=== PATIENT | male | born 1960 | race Hispanic/Latino ===

== ENCOUNTER → 2021-03-17 | Day surgery (SDC) | payer BC, OTHER ==
[~2021-03-17] MED LIST: AMLODIPINE BESY10 MG PO; ASPIRIN81 MG PO; BUPROPION HCL75 MG PO; FEROSUL325 MG PO; LIDOCAINE HCL 2% LOCAL INJ 5 ML SDV VIAL INJ ONE; LISINOPRIL10 MG PO; OMEGA 3 1,0001 EACH PO; OMEPRAZOLE40 MG PO; PROPOFOL IV EMULSION 10 MG/ML 20 ML VIAL ONE; VITAMIN D
[2021-03-17 12:35] VITALS: BP 120/80
== END | disposition home or self-care (01) ==
LOC: OR 07:55
PROVIDERS: ATTEND Internal Medicine Gastroenterology
DX: D50.9 Iron deficiency anemia, unspecified (principal); K20.90 Esophagitis, unspecified without bleeding; K29.70 Gastritis, unspecified, without bleeding; K64.8 Other hemorrhoids; K31.89 Other diseases of stomach and duodenum; D12.7 Benign neoplasm of rectosigmoid junction; K31.7 Polyp of stomach and duodenum; I10 Essential (primary) hypertension; Z87.19 Personal history of other diseases of the digestive system; Z68.32 Body mass index [BMI] 32.0-32.9, adult; E78.5 Hyperlipidemia, unspecified; K44.9 Diaphragmatic hernia without obstruction or gangrene; Z01.810 Encounter for preprocedural cardiovascular examination; Z01.812 Encounter for preprocedural laboratory examination
CPT/HCPCS: 43239; 43250; 45384; 93005; J2001; J2704; U0002; 43251; 45378